=== PATIENT | female | born 1990 | race Caucasian/White ===

== ENCOUNTER 2022-02-04 21:52 | Emergency (ER) | payer SELFPAY ==
[~2022-02-04] VITALS: Ht 160 cm; Wt 64.9 kg
[2022-02-04 22:40] VITALS: BP 134/68
--- NOTE | 2022-02-04 22:46 | NUR ---
TO LOBBY FOLLOWING TRIAGE AFTER OBTAINING UA
--- NOTE | 2022-02-04 23:26 | NUR ---
Pt coming from home ambulatory with steady gait. Pt c/o vaginal itchiness, irritation, and bumps that started yesterday. Rates vaginal pain 5/10 non-radiating. No chest pain and no sob. Denies n/v. VSS. A&Ox4. Skin intact. bed in lowest position. NKA. No kown medical conditions.
[2022-02-04] MEDS ORDERED: ACYC400T14 PO (23:55)
[2022-02-04] MEDS ORDERED: ACYCLOVIR 200 MG CAP PO ONE (23:55)
--- NOTE | 2022-02-04 23:56 | NUR ---
Dr. Huerta at bedside examining pt.
[2022-02-04 23:59] LABS: APPEARANCE,URINE CLOUDY (CLEAR); BILIRUBIN,URINE NEGATIVE (NEGATIVE); BLOOD, URINE TRACE-I (NEGATIVE); COLOR,URINE YELLOW (YELLOW); LEUKOCYTE ESTERASE ,URINE NEGATIVE (NEGATIVE); NITRITE, URINE NEGATIVE (NEGATIVE); PH,URINE 5.5 (5.0-9.0); UGLUCOSE NEGATIVE (NEGATIVE)
[2022-02-05 00:18] LABS: RBC,URINE 0-5 /HPF (0-5); URINE AMORPHOUS URATE 3+ /HPF (None Seen); WBC,URINE 0-5 /HPF (0-5)
[2022-02-05] MEDS ORDERED: cefTRIAXone 500 MG in LIDOCAINE 1% 1 ML INJ ONE (01:10)
[2022-02-05] MEDS ORDERED: metroNIDAZOLE 250 MG TAB PO ONE (01:10)
[2022-02-05] MEDS ORDERED: DOXYCYCLINE 100 MG CAP PO SCH (01:10)
[2022-02-05] MEDS ORDERED: METR-435 PO (01:15)
[2022-02-05] MEDS ORDERED: DOXY-690 PO (01:15)
[2022-02-05] MEDS ORDERED: cefTRIAXone 500 MG VIAL ONE (01:20)
--- NOTE | 2022-02-05 02:02 | NUR ---
Patient discharged with v/s stable. Written and verbal after care instructions given and explained. Patient verbalized understanding. Ambulatory with steady gait. All questions addressed prior to discharge. Advised to follow up with PMD.
[2022-02-05 02:03] VITALS: BP 115/73
== END 2022-02-05 02:02 | disposition home or self-care (01) ==
LOC: MED 21:52
DX: N76.5 Ulceration of vagina (principal)
CPT/HCPCS: 36415; 81001; 81025; 87070; 87086; 87205; 87210; 87252; 87491; 87529; 99284; J0696; J2001